=== PATIENT | male | born 1970 | race Caucasian/White ===

== ENCOUNTER 2021-09-03 19:31 | Emergency (ER) | payer BC, OTHER ==
[~2021-09-03] VITALS: Ht 185.4 cm; Wt 70.3 kg
--- NOTE | 2021-09-03 19:50 | NUR ---
BIB SELF C/O ASTHMA EXACERBATION AND SOB SINCE 1500. USED PRESCRIBED ALBUTEROOL WITH NO IMPROVEMENT. WENT TO URGENT CARE AND RECIEVED BREATHING TREATMENT AND DEXAMETHASONE BUT IS STILL FEELING SOB. PT APPEARS IN MILD RESP DISTRESS 97% RA, R SIDED WHEEZES NOTED. ALL V/S STABLE AWAITING MD ORDERS.
[2021-09-03] MEDS ORDERED: IPRATROPIUM NEB FS 0.5 MG/2.5 ML AMPUL.NEB NEB ONE ×2 (20:00→20:30)
[2021-09-03] MEDS ORDERED: ALBUTEROL FS 2.5 MG/3 ML VIAL.NEB NEB ONE ×2 (20:00→20:30)
--- NOTE | 2021-09-03 20:03 | NUR ---
ROOFER VINYL COATING AT PTS BEDSIDE
[2021-09-03] MEDS ORDERED: IPRATROPIUM NEB FS 0.5 MG/2.5 ML AMPUL.NEB ONE (20:17)
[2021-09-03] MEDS ORDERED: ALBUTEROL FS 2.5 MG/3 ML VIAL.NEB ONE (20:17)
--- NOTE | 2021-09-03 20:22 | NUR ---
RT AT BEDSIDE FOR BREATHING TREATMENT
--- NOTE | 2021-09-03 20:50 | NUR ---
PT REPORTS AN IMPROVEMENT IN BREATHING FOLLOWING BREATHING TREATMENT. RESPIRATIONS EVEN AND UNLABORED 98% RA.
[2021-09-03] MEDS ORDERED: PRED50TA PO (20:55)
[2021-09-03 21:01] VITALS: BP 131/97
--- NOTE | 2021-09-03 21:01 | NUR ---
Patient discharged to home in stable condition. Written and verbal after care instructions given. Patient verbalizes understanding of instruction.
== END 2021-09-03 21:02 | disposition home or self-care (01) ==
LOC: ER 19:43
DX: J45.901 Unspecified asthma with (acute) exacerbation (principal); R00.0 Tachycardia, unspecified; Z79.899 Other long term (current) drug therapy
CPT/HCPCS: 71045-TC